=== PATIENT | female | born 1945 | race Caucasian/White ===

== ENCOUNTER → 2017-07-02 12:39 | Outpatient (CLI) | payer MEDICARE, BC | END | disposition home or self-care (01) | LOC: D.CT 06-30 16:30 | DX: R31.29 Other microscopic hematuria (principal) ==

== ENCOUNTER 2017-09-02 08:00 | Outpatient (CLI) | payer MEDICARE, BC ==
[2017-09-02 11:12] LABS: HEMATOCRIT 40.2 % (36.0-48.0); HEMOGLOBIN 13.6 g/dL (12-16); MCHC 33.8 g/dL (31.0-37.0); MCV 94.6 fL (80.0-100.0); MEAN PLATELET VOLUME 9.8 fL (7.4-10.4); RBC 4.25 10x6/uL (4.00-5.40); RDW 13.2 % (11.5-14.5); WBC 4.3 10x3/uL (4.8-10.8)
[2017-09-02 11:19] LABS: ANION GAP 13.5 mmol/L (8-16); CALCIUM 9.6 mg/dL (8.5-10.1); CARBON DIOXIDE 27.3 mmol/L (21.0-32.0); CREATININE - SERUM 0.9 mg/dL (0.6-1.3); POTASSIUM - SERUM 3.8 mmol/L (3.5-5.1)
[2017-09-24 09:17] VITALS: BMI 27.2
== END 2017-09-02 23:59 | disposition home or self-care (01) ==
LOC: D.OPS 08:00 → D.PAN 09-04 10:15 → EDSTATUS 09-04 10:15 → D.PAN 09-04 11:00 → D.OPS 09-04 11:15
PROVIDERS: Anesthesiology
DX: N39.3 Stress incontinence (female) (male) (principal); Z01.810 Encounter for preprocedural cardiovascular examination; Z01.811 Encounter for preprocedural respiratory examination; Z01.812 Encounter for preprocedural laboratory examination; Z53.9 Procedure and treatment not carried out, unspecified reason

== ENCOUNTER 2017-09-24 08:37 | Outpatient (CLI) | payer MEDICARE, BC ==
[~2017-09-24] VITALS: Ht 156.2 cm; Wt 66.4 kg
--- NOTE | ~2017-09-24 | HEMODYNAMI ---
PATIENT:STEFFEN DAY MEDICAL RECORD: [id number] : 47 LOCATION:[facility] ADMISSION DATE: 09/24/17 Generatedon:09/24/201712:27 Patient name: STEFFEN DAY Patient #: [id number] SSN: : 1945 Date of study: 09/24/2017 Page: Of Hemodynamic Procedure Report Patient Data Patient Demographics Procedure consent was obtained First Name: STEFFEN Gender: Female Last Name: SHAY : 1945 Middle Initial: L Age: 71 year(s) Patient #: [id number] Race: Unknown Additional ID: [id number] Contact details [address]: [address] [place] [address] rd State: [place] City: [place] Zip code: [address] Past Medical History Allergies Allergen Reaction Date Comments Reported Other allergy 09/24/2017 Amoxicillin, Codeine. Admission Admission Data Admission Date: 09/24/2017 Admission Time: 8:37 Admit Source: Other Lab Results Lab Result Date: 09/24/2017 Lab Result Time: 9:20 Biochemistry Name Units Result Min Max BUN mg/dl 11 --(-*--)-- 7 18 Creatinine mg/dl 1 --(--*-)-- 0.6 1.3 CBC Name Units Result Min Max Hematocrit % 41.1 -*(----)-- 42 54 Hemoglobin g/dl 13.8 --(*---)-- 13.5 17.5 Procedure Procedure Types Cath Procedure Diagnostic Procedure LHC LHC w/Coronaries Miscellaneous Procedures Moderate Sedation up to 15 minutes Procedure Description Procedure Date Procedure Date: 09/24/2017 Procedure Start Time: 12:15 Procedure End Time: 12:23 Procedure Staff Name Function Piotr Almonte MD Performing Physician Karen Kingston RT Monitor Placido Power RT Scrub Ameya Huddleston RN Nurse Procedure Data Cath Procedure Fluoroscopy Diagnostic fluoroscopy Total fluoroscopy Time: 1.7 time: 1.7 min min Diagnostic fluoroscopy Total fluoroscopy dose: 296 dose: 296 mGy mGy Contrast Material Contrast Material Type Amount (ml) Isovue 300 50 Entry Location Entry Primary Successful Side Size Upsize Upsize Entry Closure Buckley ccessful Closure Location (Fr) 1 (Fr) 2 (Fr) Remarks Device Remarks Radial Right 6 Fr Mechanical artery Short Compression Estimated blood loss: 10 ml Diagnostic catheters Device Type Used For End Catheter Placement Diagnostic Terumo 5Fr Procedure Milton 110cm catheter Procedure Complications No complications Procedure Medications Medication Administration Route Dosage Oxygen NC 2 l/min Lidocaine 2% added to field 20 Heparin Flush Bag added to field 2 bags (1000units/500ml NS) 0.9% NaCl I.V. 100 ml/hr Versed I.V. 2 mg Fentanyl I.V. 100 mcg Radial Cocktail I.A. 1 syringe (Verapomil 2mg/Nitro 400mcg/Heparin 1500units) Versed I.V. 1 mg Fentanyl I.V. 50 mcg Hemodynamics Rest HGB: 13.8 (g/dl) Heart Rate: 68 (bpm) Snapshots Pre Cath Intra NCS Post Cath Vital Signs Time Heart Resp SPO2 etCO2 NIBP Rhythm Pain Status Sedation Rate (ipm) (%) (mmHg) (mmHg) Level (bpm) 12:05:23 68 26 98 0 106/59(85) NSR 7 (11) , 10(A) Very intense 12:09:29 68 32 99 0 106/60(85) NSR 7 (11) , 10(A) Very intense 12:13:35 67 31 98 0 95/60(74) NSR 4 (11) , 10(A) Distressing 12:17:39 66 15 99 0 92/58(74) NSR 0 (11) , No 9(A) pain 12:21:44 67 15 96 0 85/43(66) NSR 0 (11) , No 9(A) pain 12:24:55 67 52 96 0 88/52(69) NSR 0 (11) , No 9(A) pain Medications Time Medication Route Dose Verified Delivered Reason Notes Effectiveness by by 12:03:55 Oxygen NC 2 l/min Piotr Hou used for 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 100 Piotr Hou Per ml/hr Gage Huddleston RN physician 12:09:33 Versed I.V. 2 mg Piotr Hou for sedation Gage Huddleston RN 12:09:39 Fentanyl I.V. 100 mcg Piotr Hou for sedation Gage Huddleston RN 12:18:24 Radial Cocktail I.A. 1 Piotr Saldaña for (Verapomil syringe Gage Almonte MD vasodilation 2mg/Nitro 400mcg/Heparin 1500units) 12:18:30 Versed I.V. 1 mg Piotr Hou for sedation Gage Huddleston RN 12:18:36 Fentanyl I.V. 50 mcg Piotr Hou for sedation Gage Huddleston RN Procedure Log Time Note 11:34:48 Informed consent obtained and on chart 11:34:54 Admit Source: Other 11:35:09 Diagnostic Cath status Elective 11:35:11 Time tracking: Regular hours 11:35:15 Plan of Care:Hemodynamics will remain stable., Cardiac rhythm will remain stable., Comfort level will be maintained., Respiratory function will remain adequate., Patient/ family verbilizes understanding of procedure., Procedure tolerated without complication., Recovers from procedure without complications.. 11:38:36 H&P Date Dictated: 09/22/2017 Within 30 days and on chart., H&P Addendum completed by physician on day of procedure. (MUST COMPLETE FOR ALL OUTPATIENTS). 11:38:55 Patient allergic to Other allergyAmoxicillin, Codeine. 11:40:06 Lab Result : Hemoglobin 13.8 g/dl 11:40:06 Lab Result : Hematocrit 41.1 % 11:40:06 Lab Result : BUN 11 mg/dl 11:40:06 Lab Result : Creatinine 1 mg/dl 11:40:22 Ameya Huddleston RN sent for patient. Start room use. 11:53:19 Patient received from Pre/Post Procedure Room to CCL 2 Alert and oriented. Tansferred to table in Supine position. 12:03:55 Oxygen 2 l/min NC was administered by Ameya Huddleston RN; used for procedure; 12:04:01 Lidocaine 2% 20ml vial added to field was administered by Piotr Almonte MD; for local anesthetic; 12:04:07 Heparin Flush Bag (1000units/500ml NS) 2 bags added to field was administered by Piotr Almonte MD; used for procedure; 12:04:15 0.9% NaCl 100 ml/hr I.V. was administered by Ameya Huddleston RN; Per physician; 12:04:18 Vital chart was started 12:05:11 Warm blankets applied, and glenn hugger turned on for patient comfort. 12:05:12 Correct patient and procedure confirmed by team. 12:05:13 ECG and BP/O2 sat monitors applied to patient. 12:05:14 Baseline sample Acquired. 12:05:15 Full Disclosure recording started 12:05:20 Pre-procedure instructions explained to patient. 12:05:22 Family in waiting room. 12:05:23 Patient NPO since Midnight. 12:05:26 Is the patient allergic to Iodine/contrast media? No. 12:05:27 Is patient on blood thinner?Yes 12:05:30 ACC The patient was administered the following blood thiners within the last 24 hours: ACCPlavix 12:05:32 Patient diabetic? No. 12:05:38 Snore? No 12:05:39 Sleep apnea? No 12:05:44 Airway obstruction? Yes COPD 12:05:48 Dentures? Yes OUT 12:06:00 IV patent on arrival in left forearm with 0.9% NaCl at [facility]. 12:06:05 Lab results completed and on chart. 12:06:09 Right Radial & Right Groin area was prepped with chlora-prep and draped in sterile fashion 12:06:10 Alarms reviewed by R. N. 12:06:11 Sharps counted by scrub and verified by R.N. 12:06:12 Physician paged 12:06:12 Physician arrived 12:06:14 --------ALL STOP TIME OUT------ 12:06:22 Final Timeout: patient, procedure, and site verified with staff and physician. All members of the team are in agreement. 12:06:24 Right Radial & Right Groin site verified by team. 12:06:37 Physical assessment completed. ASA score P 2 - A patient with mild systemic disease as per Piotr Almonte MD. 12:06:41 Sedation plan: IV Moderate Sedation Medication:Versed, Fentanyl 12:07:25 Use device set Radial Dx 12:07:32 Acist Syringe opened to sterile field. 12:07:32 Medline Cath Pack opened to sterile field. 12:07:32 Bag Decanter opened to sterile field. 12:07:33 Terumo 6Fr Slender Glidesheath opened to sterile field. 12:07:34 [facility] 260cm J .035 wire opened to sterile field. 12:07:34 Acist Hand Control opened to sterile field. 12:07:34 Acist Manifold opened to sterile field. 12:07:35 Tegaderm 4 x 4 opened to sterile field. 12:07:35 MBrace Wrist Support opened to sterile field. 12::33 Versed 2 mg I.V. was administered by Ameya Huddleston RN; for sedation; 12:09:39 Fentanyl 100 mcg I.V. was administered by Ameya Huddleston RN; for sedation; 12::59 pt pain is from chronic back pain 12:15:26 Procedure started. 12:15:37 Local anesthetic to right radial artery with Lidocaine 2% by Piotr Almonte MD.INITIAL ACCESS ONLY 12:15:51 Zero performed for pressure channel P1 12:16:00 Zero performed for pressure channel P1 12:16:23 A 6 Fr Short sheath was inserted into the Right Radial artery 12:16:56 A Diagnostic Terumo 5Fr Milton 110cm catheter was advanced over the wire and used for Procedure. 12:18:14 LV gram done using LOYOLA 12:18:24 Radial Cocktail (Verapomil 2mg/Nitro 400mcg/Heparin 1500units) 1 syringe I.A. was administered by Piotr Almonte MD; for vasodilation; 12:18:30 Versed 1 mg I.V. was administered by Ameya Huddleston RN; for sedation; 12:18:36 Fentanyl 50 mcg I.V. was administered by Ameya Huddleston RN; for sedation; 12:19:26 LCA angiography performed. 12:20:33 RCA angiography performed. 12:21:00 Catheter removed. 12:21:10 Terumo TR Band Standard opened to sterile field. 12:21:59 Sheath removed intact; hemostasis achieved with Mechanical Compression to the Right Radial artery. 12:22:02 Procedure ended.(Physican Out) 12:22:15 Fluoroscopy time 01.70 minutes. 12:22:19 Flurop Dose total: 296 12:22:19 Fluoroscopy dose: 296 mGy 12:22:29 Contrast amount:Isovue 300 50ml. 12:22:34 Sharps counted by scrub and verified by R.N. 12:22:37 TR band inflated with 10cc of air. 12:22:38 Insertion/operative site no bleeding no hematoma. 12:22:39 Post Procedure Pulses reassessed and unchanged 12:22:43 Post procedure rhythm: unchanged. 12:22:46 Estimated blood loss: 10 ml 12:22:48 Post procedure instruction explained to patient.Patient verbalizes understanding. 12:22:57 Procedure type changed to Cath procedure, Diagnostic procedure, LHC, LHC w/Coronaries, Miscellaneous Procedures, Moderate Sedation up to 15 minutes 12:22:58 Procedure and supply charges have been captured, reviewed, submitted and are correct. 12:23:04 Procedure Complication : No complications 12:23:06 Vital chart was stopped 12:23:07 See physician's report for complete and final results. 12:23:09 Report given to Pre/Post Procedure Room. 12:23:13 Patient transfered to Pre/Post Procedure Room with Stretcher. 12:23:16 Procedure ended. 12:23:16 Full Disclosure recording stopped Device Usage Item Name Manufacture Quantity Catalog Hospital Part Current Minimal Lot# / Number Charge Number Stock Stock Serial# Code Acist Acist 1 [id number] [id number] [id number] [id number] 20 Syringe [employer] Inc Medline Cardinal 1 [id number] 015168 73462 832810 5 Cath Pack Health Bag Microtek 1 2001S 082143 99654 572660 5 Decanter [employer]. Terumo 6Fr Terumo 1 [id number] 562997 991256 537516 [address] [facility] [facility] 1 [id number] 146868 080465 833609 30 260cm J .035 wire Acist Hand Acist 1 38212 501937 552804 673103 5 Control [employer] Inc Acist Acist 1 48842 806294 604723 681321 5 CardioFocus [employer] Inc Tegaderm 4 3M 1 [id number] 974343 476871 584404 5 x 4 MBrace Advanced 1 140-0250-00 584105 31810 300943 5 Wrist Vascular Support Dynamics Diagnostic Terumo 1 92-9848 971146 061933 769189 5 Terumo 5Fr Milton 110cm catheter Terumo TR Terumo 1 [id number] 471590 218009 585048 40 Band Standard Signature Audit [employer] Stage Time Signature Unsigned Intra-Procedure 09/24/2017 Karen Kingston 12:27:40 PM RT(R) Signatures Monitor : Karen Kingston Signature : RT Date : Time : [place] [id number] [place] [address]
[2017-09-24] MEDS ORDERED: NORVASC10 MG PO (08:58)
[2017-09-24] MEDS ORDERED: BUPROPION XL150 MG PO (08:59)
[2017-09-24] MEDS ORDERED: PLAVIX75 MG PO (08:59)
[2017-09-24] MEDS ORDERED: NAPROSYN500 MG PO (08:59)
[2017-09-24] MEDS ORDERED: MYRBETRIQ50 MG PO (09:00)
[2017-09-24] MEDS ORDERED: ADVAIR 250/501 DISK INH (09:00)
[2017-09-24] MEDS ORDERED: NITROQUICK0.4 MG SL (09:00)
[2017-09-24] MEDS ORDERED: TRICOR145 MG PO (09:00)
[2017-09-24] MEDS ORDERED: SPIRIVA18 MCG INH (09:01)
[2017-09-24] MEDS ORDERED: ZANTAC300 MG PO (09:02)
[2017-09-24 09:17] VITALS: BP 142/70; Ht 156.2 cm; Wt 66.4 kg
[2017-09-24 09:34] LABS: BASOPHILS 0.2 % (0-2); EOSINOPHILS 2.6 % (0-7); HEMATOCRIT 41.1 % (36.0-48.0); HEMOGLOBIN 13.8 g/dL (12-16); IMMATURE GRANULOCYTES 0.3 % (0-5); LYMPHOCYTES 20.2 % (15-50); MCH 31.5 pg (26.0-34.0); MCHC 33.6 g/dL (31.0-37.0); MCV 93.8 fL (80.0-100.0); MEAN PLATELET VOLUME 9.7 fL (7.4-10.4); MONOCYTES 11.1 % (2-11); NEUTROPHILS 65.6 % (40-80); PLATELET COUNT 201 10x3/uL (130-400); RBC 4.38 10x6/uL (4.00-5.40); RDW 12.8 % (11.5-14.5); WBC 5.8 10x3/uL (4.8-10.8)
[2017-09-24 09:48] LABS: ANION GAP 14.4 mmol/L (8-16); CALCIUM 9.5 mg/dL (8.5-10.1); CARBON DIOXIDE 26.9 mmol/L (21.0-32.0); POTASSIUM - SERUM 4.3 mmol/L (3.5-5.1)
--- NOTE | 2017-09-24 14:14 | NUR ---
1250 RESTING WITH EYES CLOSED, LYING ON SIDE. ALL VITALS WNL. ROOM AIR. R WRIST TR BAND C/D/I W NO HEMATOMA OR BLEEDING. 1330 SIPPING WATER WITH NO NAUSEA. ALL VITALS WNL. R WRIST TR C/D/I. 1415 PIV REMOVED FROM LEFT FOREARM, 2CC AIR REMOVED FROM R WRIST TR BAND. UP TO BEDSIDE TO DRESS WITH ASSIST FROM .
--- NOTE | 2017-09-24 14:31 | NUR ---
TR BAND WEANED. 2X2 AND TEGADERM APPLIED. BRACE RE-APPLIED TO WRIST. D/C INSTRUCTIONS DISCUSSED WITH PATIENT AND HSUBAND AT BEDSIDE. WHEELED OUT VIA WHEELCHAIR BY CATH TEAM.
--- NOTE | 2017-09-26 14:14 | OP ---
PATIENT NAME: STEFFEN DAY MEDICAL RECORD: [id number] :47 LOCATION:[facility] ADMISSION DATE: SURGEON: ERICA CLINE MD DATE OF OPERATION: 09/24/2017 PROCEDURES: 1. Left heart catheterization. 2. Selective coronary angiography. 3. Left ventriculogram. INDICATION: Angina and coronary artery disease. PROCEDURE IN DETAIL: After informed consent was obtained and after detailed explanation of risks, benefits as well as alternative therapies, the patient elected to proceed with angiogram and heart catheterization. The right radial area was prepped and draped in normal sterile fashion. Right radial artery was cannulated via modified Seldinger technique with placement of 5-Faroese sheath. All catheters exchanged through this sheath. FINDINGS: The left ventriculogram was performed in standard 30-degree LOYOLA view, reveals good cardiac wall motion throughout all segments. Overall ejection fraction estimated 60%. SELECTIVE CORONARY ANGIOGRAPHY: Left main, left anterior descending, left circumflex, right coronary all are clean wall vessels with no significant coronary artery disease present. OVERALL IMPRESSION: 1. No significant coronary artery disease is present. 2. Normal left ventricular function. 3. Normal left ventricular systolic function. Chest pain is noncardiac. No further cardiac workup needs to be ascertained. TRANSINT:[id number] Voice Confirmation ID: [id number] DOCUMENT ID: [id number] ERICA CLINE MD at 1414 CC: [id number] DICTATION DATE: 09/24/17 1223 TRACER CLERK: 09/24/17 1328 DEP CLI 09/24/17 [place] [id number] [place] [id number]
== END 2017-09-24 14:32 | disposition home or self-care (01) ==
LOC: D.CATH 08:37
PROVIDERS: Internal Medicine Interventional Cardiology
DX: I25.119 Atherosclerotic heart disease of native coronary artery with unspecified angina pectoris (principal); R94.30 Abnormal result of cardiovascular function study, unspecified; I10 Essential (primary) hypertension; E78.5 Hyperlipidemia, unspecified; F17.200 Nicotine dependence, unspecified, uncomplicated